=== PATIENT | female | born 1995 | race African-American/Black ===

== ENCOUNTER 2024-10-21 09:01 | Emergency (ER) | payer MEDICAID ==
[2024-10-21] MEDS ORDERED: Acetaminophen 500 MG TAB ONE (09:33)
[2024-10-21] MEDS ORDERED: Bacitracin 1 PK ONE (10:21)
== END 2024-10-21 10:30 | disposition home or self-care (01) ==
LOC: ERS 09:01
DX: T23.001A Burn of unspecified degree of right hand, unspecified site, initial encounter (principal); V49.40XA Driver injured in collision with unspecified motor vehicles in traffic accident, initial encounter
CPT/HCPCS: 99284